=== PATIENT | female | born 1955 | race Two or more races ===

== ENCOUNTER 2024-08-04 20:51 | Emergency (ER) | payer OTHER ==
[~2024-08-04] VITALS: Ht 157.5 cm; Wt 70.3 kg
[2024-08-04] MEDS ORDERED: KETOROLAC TROMETHAMINE 30 MG VIAL IM STA (21:03)
[2024-08-04] MEDS ORDERED: DIOVAN40 MG PO (21:10)
[2024-08-04] MEDS ORDERED: CLARITIN5 MG/5 ML PO (21:10)
[2024-08-04] MEDS ORDERED: SINGULAIR4 MG PO (21:10)
[2024-08-04] MEDS ORDERED: ROSUVASTATIN CAL5 MG PO (21:11)
[2024-08-04] MEDS ORDERED: ASPIRIN 81 MG TAB.CHEW PO STA (22:54)
[2024-08-04] MEDS ORDERED: TRAMADOL HCL 50 MG TABLET PO STA (22:54)
== END 2024-08-04 23:43 | disposition home or self-care (01) ==
LOC: ER 20:51
DX: S82.091A Other fracture of right patella, initial encounter for closed fracture (principal); W19.XXXA Unspecified fall, initial encounter; Y93.89 Activity, other specified; Y92.89 Other specified places as the place of occurrence of the external cause; Y99.8 Other external cause status

== ENCOUNTER 2024-08-07 07:15 | Outpatient (CLI) | payer OTHER ==
[~2024-08-07 07:15] MED LIST: CLARITIN5 MG/5 ML PO; DIOVAN40 MG PO; ROSUVASTATIN CAL5 MG PO; SINGULAIR4 MG PO
[2024-08-07 08:22] LABS: HEMOGLOBIN 13.9 g/dL (12.0-15.00); MEAN CELL VOLUME 92.7 fL (80.00-100.00); MEAN CORPUSCULAR HEMOGLOBIN 31.4 pg (27.00-32.0); MEAN CORPUSCULAR HGB CONC 33.9 g/dl (32.0-36.0); PLATELET COUNT 192 K/uL (150-450); RED BLOOD COUNT 4.42 M/uL (4.00-6.00); RED CELL DISTRIBUTION WIDTH 12.7 % (11.5-14.5)
[2024-08-07 08:52] LABS: COL EPI 67 SECONDS (82-175)
[2024-08-07 09:11] LABS: INR 1.01; PARTIAL THROMBOPLASTIN TIME 26.3 SECONDS (22.0-34.0)
[2024-08-07 09:24] LABS: ALBUMIN 3.7 gm/dL (3.4-5.0); BILIRUBIN TOTAL 0.65 mg/dL (0.3-1.2); CREATININE SERUM 0.74 mg/dL (0.55-1.02); GFR 78.28; POTASSIUM 4.39 mEq/L (3.5-5.1); TOTAL PROTEIN 7.7 gm/dL (6.4-8.2)
[2024-08-07 09:38] LABS: PH,URINE 5.5 (5.0-8.0); URINE APPEARANCE Clear; URINE BILIRRUBIN Negative (NEGATIVE); URINE BLOOD Negative; URINE COLOR Yellow; URINE GLUCOSE Negative (NEGATIVE); URINE KETONE Trace (NEGATIVE); URINE LEUKOCYTE Small; URINE NITRATE Negative; URINE PROTEIN Negative (NEGATIVE)
[2024-08-07 09:40] LABS: URINE BACTERIA 595.9 uL (0.0-1933); URINE EPITHELIAL CELLS 20.4 uL (0.0-38.8); URINE RBC 7.3 uL (0.0-20.8); URINE WBC 37.6 uL (0.0-23.2)
[2024-08-08] MEDS ORDERED: DUI500 PO (19:19)
[2024-08-08] MEDS ORDERED: TRAM1TAB98 PO (19:19)
[2024-08-08] MEDS ORDERED: EC ASPIRIN325 MG PO (19:19)
== END 2024-08-07 07:22 | disposition home or self-care (01) ==
LOC: LAB 07:15
PROVIDERS: ATTEND Orthopaedic Surgery
DX: D64.9 Anemia, unspecified (principal); E88.89 Other specified metabolic disorders; D68.8 Other specified coagulation defects; N39.0 Urinary tract infection, site not specified; Z22.322 Carrier or suspected carrier of Methicillin resistant Staphylococcus aureus; E11.9 Type 2 diabetes mellitus without complications; S82.001A Unspecified fracture of right patella, initial encounter for closed fracture

== ENCOUNTER 2024-08-08 12:13 | Day surgery (SDC) | payer OTHER ==
[~2024-08-08] VITALS: Ht 152.4 cm; Wt 70.3 kg
[2024-08-08 09:07] VITALS: BP 124/80
[2024-08-08] MEDS ORDERED: CEFAZOLIN SODIUM 1,000 MG VIAL IV ONE (18:00)
[2024-08-08] MEDS ORDERED: EC ASPIRIN325 MG PO (19:19)
[2024-08-08] MEDS ORDERED: DUI500 PO (19:19)
[2024-08-08] MEDS ORDERED: TRAM1TAB98 PO (19:19)
[2024-08-08] MEDS ORDERED: hydrALAZINE HCL 20 MG VIAL IV ONE (23:30)
== END 2024-08-09 01:15 | disposition home or self-care (01) ==
LOC: CIR.AMB 12:13
PROVIDERS: ATTEND Orthopaedic Surgery
DX: S82.031A Displaced transverse fracture of right patella, initial encounter for closed fracture (principal); S80.01XA Contusion of right knee, initial encounter; M25.061 Hemarthrosis, right knee